=== PATIENT | female | born 1950 | race Caucasian/White ===

== ENCOUNTER 2016-11-28 22:57 | Emergency (ER) | payer OTHER ==
[2016-11-28] MEDS ORDERED: SODIUM CHLORIDE 0.9% 1,000 ML IV ONE (23:29)
[2016-11-28] MEDS ORDERED: SODIUM CHLORIDE 0.9% 1,000 ML IV SCH (23:30)
[2016-11-29 00:12] VITALS: RESP 18
--- NOTE | 2016-11-29 00:16 | ED ---
Female Urogenital HPI - General Chief complaint: Urogenital Stated complaint: UTI Time Seen by Provider: 11/28/16 23:07 Source: patient, RN notes reviewed, old records reviewed Mode of arrival: ambulatory Limitations: no limitations - History of Present Illness Initial comments: This is a 56-year-old female presenting to the emergency department with chief complaint of acute urinary retention. Patient reports that she was able to urinate fine earlier today, but did notice increased frequency. Patient states that approximately half hour ago she tried to urinate but was unable to. Patient reports that she feels like her ladder is very distended and that she is unable to go. She denies any numbness or tingling down her legs. She states that she takes Xanax for anxiety, but she denies any other medications. Patient reports on Friday she did strain her back. She reports that she's had some intermittent pain with certain movements. Patient denies any difficulty with bowel movements. Patient reports that the pain seems sharp and sudden only occurred for the past half hour. Patient denies any recent fever, chills, shortness of breath, chest pain, back pain, nausea vomiting, numbness or tingling, constipation or diarrhea, headaches or visual changes, or any other current symptoms - Related Data Home Medications Medication Instructions Recorded Confirmed ALPRAZolam [Xanax] 0.5 mg PO HS PRN 11/28/16 11/28/16 Ibuprofen [Motrin] 400 - 800 mg PO BID PRN 11/28/16 11/28/16 Previous Rx's Medication Instructions Recorded Levofloxacin [Levaquin] 750 mg PO DAILY #5 tab 11/29/16 Phenazopyridine [Pyridium] 100 mg PO TID #9 tablet 11/29/16 Allergies Allergy/AdvReac Type Severity Reaction Status Date / Time No Known Allergies Allergy Verified 11/28/16 23:17 Review of Systems ROS Statement: Those systems with pertinent positive or pertinent negative responses have been documented in the HPI. ROS Other: All systems not noted in ROS Statement are negative. Past Medical History Past Medical History: No Reported History History of Any Multi-Drug Resistant Organisms: None Reported Past Surgical History: Hysterectomy Additional Past Surgical History / Comment(s): bladder sling. left wrist. Past Psychological History: No Psychological Hx Reported Smoking Status: Never smoker Past Alcohol Use History: Occasional Past Drug Use History: None Reported General Exam - General Exam Comments Initial Comments: This is a 66-year-old female. appears to be in acute pain. Limitations: no limitations General appearance: alert, in no apparent distress Head exam: Present: atraumatic, normocephalic, normal inspection Eye exam: Present: normal appearance, PERRL, EOMI. Absent: scleral icterus, conjunctival injection, periorbital swelling ENT exam: Present: normal exam, mucous membranes moist Neck exam: Present: normal inspection. Absent: tenderness, meningismus, lymphadenopathy Respiratory exam: Present: normal lung sounds bilaterally. Absent: respiratory distress, wheezes, rales, rhonchi, stridor Cardiovascular Exam: Present: regular rate, normal rhythm, normal heart sounds. Absent: systolic murmur, diastolic murmur, rubs, gallop, clicks GI/Abdominal exam: Present: soft, tenderness (Severe suprapubic tenderness.), normal bowel sounds. Absent: distended, guarding, rebound, rigid Rectal exam: Present: normal inspection, normal rectal tone Extremities exam: Present: normal inspection, full ROM, normal capillary refill. Absent: tenderness, pedal edema, joint swelling, calf tenderness Back exam: Present: normal inspection, full ROM Neurological exam: Present: alert, oriented X3, CN II-XII intact Psychiatric exam: Present: normal affect, normal mood Skin exam: Present: warm, dry, intact, normal color. Absent: rash Course Vital Signs 11/28/16 11/29/16 11/29/16 23:00 00:11 01:36 Temperature 97.4 F L 97.6 F Pulse Rate 117 H 72 76 Respiratory 28 H 18 18 Rate Blood Pressure 136/72 171/88 175/88 O2 Sat by Pulse 99 97 97 Oximetry - Reevaluation(s) Reevaluation #1: 11/29/16 00:16 Patient appears to have a severe acute urinary retention. Bladder scan was performed and showed 720 mL of fluid. Patient attempted to go to the bathroom however was unable to. Patient did receive a straight cath at that time. Patient reports that she is 100% improvement of her pain. Patient states her pain is a 0 out of 10 at this time. Discussed with the patient that I like to do IV blood work and give her IV fluids, and reevaluate and see if she is able to urinate again. Medical Decision Making - Medical Decision Making This is a 56-year-old female presenting to the emergency department with chief complaint of acute urinary retention. Patient reports that she was able to urinate fine earlier today, but did notice increased frequency. Patient states that approximately half hour ago she tried to urinate but was unable to. Patient reports that she feels like her ladder is very distended and that she is unable to go. She denies any numbness or tingling down her legs. She states that she takes Xanax for anxiety, but she denies any other medications. Patient reports on Friday she did strain her back. Initially try to go to the bathroom but was unable to. She was bladder scanned and noted to have some burn 20 mL of fluid in her bladder. Patient will straight cath. Patient reports significant improvement of her pain after the catheterization. Urine does show significant signs of infection including many red blood cells, white blood cells, nitrites and leukocyte esterase. Patient was given IV fluids and blood work was obtained. Blood work was negative for any acute process. Urine culture will be obtained. Patient was able to urinate after receiving the straight cath and did go to urinate 3 times on the emergency department. Patient acute urinary retention was likely due to urethral inflammation. Patient states that she wants to go home. Patient did receive IV Rocephin and by mouth Levaquin before being discharged. Patient will be discharged with Pyridium and 5 days of Levaquin. Discussed close follow -up with primary care provider. Patient advised on return parameters with acute urinary retention occurs. Rectal exam was performed and shows normal sphincter tone, concern for neurogenic bladder. - Lab Data Result diagrams: 11/29/16 00:05 11/29/16 00:05 Lab Results 11/28/16 11/29/16 11/29/16 Range/Units 23:40 00:05 00:05 WBC 7.5 (3.8-10.6) k/uL RBC 4.50 (3.80-5.40) m/uL Hgb 13.4 (11.4-16.0) gm/dL Hct 41.4 (34.0-46.0) % MCV 91.9 (80.0-100.0) fL MCH 29.9 (25.0-35.0) pg MCHC 32.5 (31.0-37.0) g/dL RDW 13.3 (11.5-15.5) % Plt Count 247 (150-450) k/uL Neutrophils % 60 % Lymphocytes % 29 % Monocytes % 6 % Eosinophils % 3 % Basophils % 1 % Neutrophils # 4.5 (1.3-7.7) k/uL Lymphocytes # 2.1 (1.0-4.8) k/uL Monocytes # 0.5 (0-1.0) k/uL Eosinophils # 0.2 (0-0.7) k/uL Basophils # 0.1 (0-0.2) k/uL Sodium 142 (137-145) mmol/L Potassium 4.0 (3.5-5.1) mmol/L Chloride 108 H (98-107) mmol/L Carbon Dioxide 24 (22-30) mmol/L Anion Gap 10 mmol/L BUN 18 H (7-17) mg/dL Creatinine 0.80 (0.52-1.04) mg/dL Est GFR (MDRD) Af Amer >60 (>60 ml/min/1.73 sqM) Est GFR (MDRD) Non-Af >60 (>60 ml/min/1.73 sqM) Glucose 102 H (74-99) mg/dL Plasma Lactic Acid Rj (0.7-2.0) mmol/L Calcium 9.3 (8.4-10.2) mg/dL Total Bilirubin 0.3 (0.2-1.3) mg/dL AST 24 (14-36) U/L ALT 36 (9-52) U/L Alkaline Phosphatase 94 (38-126) U/L Total Protein 7.1 (6.3-8.2) g/dL Albumin 4.0 (3.5-5.0) g/dL Urine Color Yellow Urine Appearance Cloudy H (Clear) Urine pH 6.5 (5.0-8.0) Ur Specific [place] 1.009 (1.001-1.035) Urine Protein 1+ H (Negative) Urine Glucose (UA) Negative (Negative) Urine Ketones Negative (Negative) Urine Blood Large H (Negative) Urine Nitrite Positive H (Negative) Urine Bilirubin Negative (Negative) Urine Urobilinogen <2.0 (<2.0) mg/dL Ur Leukocyte Esterase Large H (Negative) Urine RBC >182 H (0-5) /hpf Urine WBC >182 H (0-5) /hpf Urine WBC Clumps Moderate H (None) /hpf Urine Bacteria Moderate H (None) /hpf 11/29/16 Range/Units 00:05 WBC (3.8-10.6) k/uL RBC (3.80-5.40) m/uL Hgb (11.4-16.0) gm/dL Hct (34.0-46.0) % MCV (80.0-100.0) fL MCH (25.0-35.0) pg MCHC (31.0-37.0) g/dL RDW (11.5-15.5) % Plt Count (150-450) k/uL Neutrophils % % Lymphocytes % % Monocytes % % Eosinophils % % Basophils % % Neutrophils # (1.3-7.7) k/uL Lymphocytes # (1.0-4.8) k/uL Monocytes # (0-1.0) k/uL Eosinophils # (0-0.7) k/uL Basophils # (0-0.2) k/uL Sodium (137-145) mmol/L Potassium (3.5-5.1) mmol/L Chloride (98-107) mmol/L Carbon Dioxide (22-30) mmol/L Anion Gap mmol/L BUN (7-17) mg/dL Creatinine (0.52-1.04) mg/dL Est GFR (MDRD) Af Amer (>60 ml/min/1.73 sqM) Est GFR (MDRD) Non-Af (>60 ml/min/1.73 sqM) Glucose (74-99) mg/dL Plasma Lactic Acid Rj 0.9 (0.7-2.0) mmol/L Calcium (8.4-10.2) mg/dL Total Bilirubin (0.2-1.3) mg/dL AST (14-36) U/L ALT (9-52) U/L Alkaline Phosphatase (38-126) U/L Total Protein (6.3-8.2) g/dL Albumin (3.5-5.0) g/dL Urine Color Urine Appearance (Clear) Urine pH (5.0-8.0) Ur Specific [place] (1.001-1.035) Urine Protein (Negative) Urine Glucose (UA) (Negative) Urine Ketones (Negative) Urine Blood (Negative) Urine Nitrite (Negative) Urine Bilirubin (Negative) Urine Urobilinogen (<2.0) mg/dL Ur Leukocyte Esterase (Negative) Urine RBC (0-5) /hpf Urine WBC (0-5) /hpf Urine WBC Clumps (None) /hpf Urine Bacteria (None) /hpf Disposition Clinical Impression: Urinary tract infection, Acute urinary retention Disposition: HOME SELF-CARE Condition: Good Instructions: Urinary Tract Infection in Women (ED) Additional Instructions: Follow up with her primary care provider within the next 1-2 days. Return to emergency department if any alarming signs or symptoms occur. Prescriptions: Levofloxacin [Levaquin] 750 mg PO DAILY #5 tab Phenazopyridine [Pyridium] 100 mg PO TID #9 tablet Referrals: Nicolas Ceja MD [Primary Care Provider] - 1-2 days Time of Disposition: 01:20
[2016-11-29 00:19] LABS: Appearance,Urine Cloudy (Clear); Bacteria,Urine Moderate /hpf; Bilirubin,Urine Negative (Negative); Glucose,Urine (UA) Negative (Negative); Ketones,Urine Negative (Negative); Leukocyte Esterase,Urine Large (Negative); Nitrite,Urine Positive (Negative); PH, Urine 6.5 (5.0-8.0); Particle Count 25640; Protein,Urine 1+ (Negative); RBC,Urine >182 /hpf (0-5); Specific Gravity,Urine 1.009 (1.001-1.035); UA Billing (MACRO vs. MICRO) MICRO; Urobilinogen,Urine <2.0 mg/dL (<2.0); WBC,Urine >182 /hpf (0-5)
[2016-11-29 00:21] LABS: Basophils # (A) 0.1 k/uL (0-0.2); Basophils % (A) 1 %; CHCM 32.8; Eosinophils # (A) 0.2 k/uL (0-0.7); Eosinophils % (A) 3 %; HCT 41.4 % (34.0-46.0); HDW 2.29; HGB 13.4 gm/dL (11.4-16.0); Luc # (Auto) 0.13; Luc % (Auto) 2; Lymphocytes # (A) 2.1 k/uL (1.0-4.8); Lymphocytes % (A) 29 %; MCH 29.9 pg (25.0-35.0); MCHC 32.5 g/dL (31.0-37.0); MCV 91.9 fL (80.0-100.0); Mean Platelet Volume 7.5; Monocytes # (A) 0.5 k/uL (0-1.0); Monocytes % (A) 6 %; Neutrophils # (A) 4.5 k/uL (1.3-7.7); Neutrophils % (A) 60 %; RDW 13.3 % (11.5-15.5); WBC 7.5 k/uL (3.8-10.6)
[2016-11-29 00:33] LABS: ALT 36 U/L (9-52); AST 24 U/L (14-36); Alkaline Phosphatase 94 U/L (38-126); Anion Gap 10 mmol/L; Blood Urea Nitrogen 18 mg/dL (7-17); Calcium 9.3 mg/dL (8.4-10.2); Carbon Dioxide 24 mmol/L (22-30); Chloride 108 mmol/L (98-107); Glucose 102 mg/dL (74-99); Non-African American GFR(MDRD) >60 (>60 ml/min/1.73 sqM); Sodium 142 mmol/L (137-145); Total Bilirubin 0.3 mg/dL (0.2-1.3); Total Protein 7.1 g/dL (6.3-8.2)
--- NOTE | 2016-11-29 00:36 | XR ---
EXAM: XR Pelvis, 1 or 2 Views CLINICAL HISTORY: Pain. TECHNIQUE: Frontal view of the pelvis. COMPARISON: No relevant prior studies available. FINDINGS: Bones/joints: No acute fracture. No dislocation. There are mild degenerative changes at the hip joints. Soft tissues: Few pelvic calcifications, most likely vascular. IMPRESSION: No acute findings.
--- NOTE | 2016-11-29 00:41 | XR ---
EXAM: XR Lumbar Spine, 2 or 3 Views CLINICAL HISTORY: Pain TECHNIQUE: Frontal and lateral views of the lumbar spine. COMPARISON: No relevant prior studies available. FINDINGS: Vertebrae: Decreased osseous mineralization. Mild curvature of the lumbar spine. No radiographic evidence of fracture or significant malalignment. The vertebral body heights are maintained. There is lower lumbar spine facet arthropathy. Disc spaces: Mild multilevel disc space narrowing. Soft tissues: Moderate colonic stool and gas. IMPRESSION: No radiographic evidence of fracture or significant malalignment.
[2016-11-29] MEDS ORDERED: LEVOFLOXACIN 750MG-D5W PMX 750 MG in DEXTROSE/WATER 1 150ML.BAG IVPB STA (00:46)
[2016-11-29] MEDS ORDERED: LEVOFLOXACIN 750 MG TAB PO STA (00:47)
[2016-11-29 01:37] VITALS: BP 175/88; PULSE 76; TEMP 97.6
== END 2016-11-29 01:38 | disposition home or self-care (01) ==
LOC: EC 22:57
DX: N39.0 Urinary tract infection, site not specified (principal); R33.9 Retention of urine, unspecified; M54.9 Dorsalgia, unspecified
CPT/HCPCS: 99284; 96365; 96361; 51701; 51798; 36415; 80053; 83605; 85025; 81001; 87040; 87086; 72100; 72170; J0696; 87077; 87186

== ENCOUNTER 2016-11-30 02:05 | Emergency (ER) | payer MEDICARE, OTHER ==
[2016-11-30] MEDS: SODIUM CHLORIDE 0.9% 500 ML IV SCH (03:22)
--- NOTE | 2016-11-30 03:33 | ED ---
Female Urogenital HPI - General Chief complaint: Urogenital Stated complaint: Female Time Seen by Provider: 11/30/16 02:39 Source: patient, RN notes reviewed, old records reviewed Mode of arrival: ambulatory Limitations: no limitations - History of Present Illness Initial comments: Is a 66-year-old female presenting to emergency Department chief complaint of unable to urinate since 5 PM. Patient was seen in the emergency department 2 days ago and was diagnosed the urinary tract infection for similar symptoms. At that time she received a straight cath and was able to urinate afterwards. Patient reports that she was able to urinate all day today except after 5:00. Patient states that she's been taking her antibiotics. Patient denies any vomiting. She is reports suprapubic pressure. She denies any difficulty with bowel movements. - Related Data Home Medications Medication Instructions Recorded Confirmed ALPRAZolam [Xanax] 0.5 mg PO HS PRN 11/28/16 11/28/16 Ibuprofen [Motrin] 400 - 800 mg PO BID PRN 11/28/16 11/28/16 Previous Rx's Medication Instructions Recorded Levofloxacin [Levaquin] 750 mg PO DAILY #5 tab 11/29/16 Phenazopyridine [Pyridium] 100 mg PO TID #9 tablet 11/29/16 Allergies Allergy/AdvReac Type Severity Reaction Status Date / Time No Known Allergies Allergy Verified 11/30/16 02:10 Review of Systems ROS Statement: Those systems with pertinent positive or pertinent negative responses have been documented in the HPI. ROS Other: All systems not noted in ROS Statement are negative. Past Medical History Past Medical History: No Reported History History of Any Multi-Drug Resistant Organisms: None Reported Past Surgical History: Hysterectomy Additional Past Surgical History / Comment(s): bladder sling. left wrist. Past Psychological History: No Psychological Hx Reported Smoking Status: Never smoker Past Alcohol Use History: Occasional Past Drug Use History: None Reported General Exam Limitations: no limitations General appearance: alert, in no apparent distress Head exam: Present: atraumatic, normocephalic, normal inspection Eye exam: Present: normal appearance, PERRL, EOMI. Absent: scleral icterus, conjunctival injection, periorbital swelling ENT exam: Present: normal exam, mucous membranes moist Neck exam: Present: normal inspection. Absent: tenderness, meningismus, lymphadenopathy Respiratory exam: Present: normal lung sounds bilaterally. Absent: respiratory distress, wheezes, rales, rhonchi, stridor Cardiovascular Exam: Present: regular rate, normal rhythm, normal heart sounds. Absent: systolic murmur, diastolic murmur, rubs, gallop, clicks GI/Abdominal exam: Present: soft, normal bowel sounds. Absent: distended, tenderness, guarding, rebound, rigid Rectal exam: Present: normal inspection, normal rectal tone Extremities exam: Present: normal inspection, full ROM, normal capillary refill. Absent: tenderness, pedal edema, joint swelling, calf tenderness Back exam: Present: normal inspection Neurological exam: Present: alert, oriented X3, CN II-XII intact Course Vital Signs 11/30/16 11/30/16 11/30/16 02:07 02:23 03:57 Temperature 99.8 F H 98.7 F Pulse Rate 108 H Respiratory 20 Rate Blood Pressure 222/118 172/110 O2 Sat by Pulse 96 Oximetry 11/30/16 04:44 Temperature 98.0 F Pulse Rate 84 Respiratory 18 Rate Blood Pressure 176/86 O2 Sat by Pulse 98 Oximetry Medical Decision Making - Medical Decision Making Is a 66-year-old female presenting to emergency Department chief complaint of unable to urinate since 5 PM. Patient was seen in the emergency department 2 days ago and was diagnosed the urinary tract infection for similar symptoms. At that time she received a straight cath and was able to urinate afterwards. Patient reports that she was able to urinate all day today except after 5:00. Patient states that she's been taking her antibiotics. Patient denies any vomiting. She is reports suprapubic pressure. She denies any difficulty with bowel movements. PAtient received whitehead catheter as concern for repeat acute urinary retention. Patient labwork was reviewed, negative for any significant process besides severe UTI. Patient did receive rocephin and levaquin. Patient case discussed with Dr. Vilchis, he will contact urologist tomorrow morning for a follow up appointment on Friday. REturn parameters discussed. - Lab Data Result diagrams: 11/30/16 03:26 11/30/16 03:26 Lab Results 11/30/16 11/30/16 11/30/16 Range/Units 03:26 03:26 03:26 WBC 8.8 (3.8-10.6) k/uL RBC 4.58 (3.80-5.40) m/uL Hgb 13.7 (11.4-16.0) gm/dL Hct 41.3 (34.0-46.0) % MCV 90.0 (80.0-100.0) fL MCH 29.8 (25.0-35.0) pg MCHC 33.1 (31.0-37.0) g/dL RDW 13.1 (11.5-15.5) % Plt Count 215 (150-450) k/uL Neutrophils % 85 % Lymphocytes % 9 % Monocytes % 5 % Eosinophils % 0 % Basophils % 0 % Neutrophils # 7.5 (1.3-7.7) k/uL Lymphocytes # 0.8 L (1.0-4.8) k/uL Monocytes # 0.4 (0-1.0) k/uL Eosinophils # 0.0 (0-0.7) k/uL Basophils # 0.0 (0-0.2) k/uL PT (9.0-12.0) sec INR (<1.1) APTT (22.0-30.0) sec Sodium 137 (137-145) mmol/L Potassium 3.7 (3.5-5.1) mmol/L Chloride 105 (98-107) mmol/L Carbon Dioxide 20 L (22-30) mmol/L Anion Gap 12 mmol/L BUN 17 (7-17) mg/dL Creatinine 0.80 (0.52-1.04) mg/dL Est GFR (MDRD) Af Amer >60 (>60 ml/min/1.73 sqM) Est GFR (MDRD) Non-Af >60 (>60 ml/min/1.73 sqM) Glucose 123 H (74-99) mg/dL Plasma Lactic Acid Rj 0.8 (0.7-2.0) mmol/L Calcium 9.5 (8.4-10.2) mg/dL Total Bilirubin 0.5 (0.2-1.3) mg/dL AST 26 (14-36) U/L ALT 40 (9-52) U/L Alkaline Phosphatase 108 (38-126) U/L Total Protein 7.1 (6.3-8.2) g/dL Albumin 4.1 (3.5-5.0) g/dL Urine Color Urine Appearance (Clear) Urine pH (5.0-8.0) Ur Specific [place] (1.001-1.035) Urine Protein (Negative) Urine Glucose (UA) (Negative) Urine Ketones (Negative) Urine Blood (Negative) Urine Nitrite (Negative) Urine Bilirubin (Negative) Urine Urobilinogen (<2.0) mg/dL Ur Leukocyte Esterase (Negative) Urine RBC (0-5) /hpf Urine WBC (0-5) /hpf Urine WBC Clumps (None) /hpf Ur Squamous Epith Cells (0-4) /hpf Urine Bacteria (None) /hpf Urine Yeast (Budding) (None) /hpf 11/30/16 11/30/16 Range/Units 03:26 03:26 WBC (3.8-10.6) k/uL RBC (3.80-5.40) m/uL Hgb (11.4-16.0) gm/dL Hct (34.0-46.0) % MCV (80.0-100.0) fL MCH (25.0-35.0) pg MCHC (31.0-37.0) g/dL RDW (11.5-15.5) % Plt Count (150-450) k/uL Neutrophils % % Lymphocytes % % Monocytes % % Eosinophils % % Basophils % % Neutrophils # (1.3-7.7) k/uL Lymphocytes # (1.0-4.8) k/uL Monocytes # (0-1.0) k/uL Eosinophils # (0-0.7) k/uL Basophils # (0-0.2) k/uL PT 10.8 (9.0-12.0) sec INR 1.1 (<1.1) APTT 22.9 (22.0-30.0) sec Sodium (137-145) mmol/L Potassium (3.5-5.1) mmol/L Chloride (98-107) mmol/L Carbon Dioxide (22-30) mmol/L Anion Gap mmol/L BUN (7-17) mg/dL Creatinine (0.52-1.04) mg/dL Est GFR (MDRD) Af Amer (>60 ml/min/1.73 sqM) Est GFR (MDRD) Non-Af (>60 ml/min/1.73 sqM) Glucose (74-99) mg/dL Plasma Lactic Acid Rj (0.7-2.0) mmol/L Calcium (8.4-10.2) mg/dL Total Bilirubin (0.2-1.3) mg/dL AST (14-36) U/L ALT (9-52) U/L Alkaline Phosphatase (38-126) U/L Total Protein (6.3-8.2) g/dL Albumin (3.5-5.0) g/dL Urine Color Dark Brown Urine Appearance Cloudy H (Clear) Urine pH 6.0 (5.0-8.0) Ur Specific [place] 1.010 (1.001-1.035) Urine Protein 1+ H (Negative) Urine Glucose (UA) Negative (Negative) Urine Ketones Negative (Negative) Urine Blood Moderate H (Negative) Urine Nitrite Positive H (Negative) Urine Bilirubin Negative (Negative) Urine Urobilinogen <2.0 (<2.0) mg/dL Ur Leukocyte Esterase Large H (Negative) Urine RBC >182 H (0-5) /hpf Urine WBC >182 H (0-5) /hpf Urine WBC Clumps Many H (None) /hpf Ur Squamous Epith Cells <1 (0-4) /hpf Urine Bacteria Many H (None) /hpf Urine Yeast (Budding) Moderate H (None) /hpf 11/30/16 03:53 She shows normal sinus rhythm. Ventricular rate of 85 bpm. OK 154 ms. QRS ratio 86 no seconds. QT QTC 372/442 ms. No evidence of ST elevation or T-wave inversions. No evidence of atrial or ventricular arrhythmias. Disposition Clinical Impression: Acute urinary retention, UTI (urinary tract infection) Disposition: HOME SELF-CARE Condition: Good Instructions: Urinary Tract Infection in Women (ED), Whitehead Catheter Placement and Care (ED), Chronic Urinary Retention in Women (ED) Additional Instructions: Patient advised to follow-up with urologist on Friday. Return to the emergency department if any alarming signs or symptoms occur. Referrals: Nicolas Ceja MD [Primary Care Provider] - 1-2 days Adonay Kimball MD [STAFF PHYSICIAN] - 1-2 days Time of Disposition: 04:24
[2016-11-30 03:43] LABS: Basophils % (A) 0 %; CH 29.7; CHCM 33.2; Eosinophils % (A) 0 %; HCT 41.3 % (34.0-46.0); HDW 2.28; HGB 13.7 gm/dL (11.4-16.0); Luc # (Auto) 0.09; Luc % (Auto) 1; Lymphocytes # (A) 0.8 k/uL (1.0-4.8); Lymphocytes % (A) 9 %; MCH 29.8 pg (25.0-35.0); MCHC 33.1 g/dL (31.0-37.0); Mean Platelet Volume 7.3; Monocytes # (A) 0.4 k/uL (0-1.0); Monocytes % (A) 5 %; Neutrophils # (A) 7.5 k/uL (1.3-7.7); Neutrophils % (A) 85 %; RBC 4.58 m/uL (3.80-5.40); RDW 13.1 % (11.5-15.5); WBC 8.8 k/uL (3.8-10.6); WBC (Perox) 8.65
[2016-11-30 03:49] LABS: INR 1.1 (<1.1); Partial Thromboplastin Time 22.9 sec (22.0-30.0); Prothrombin Time 10.8 sec (9.0-12.0)
[2016-11-30 03:50] LABS: ALT 40 U/L (9-52); AST 26 U/L (14-36); Alkaline Phosphatase 108 U/L (38-126); Anion Gap 12 mmol/L; Blood Urea Nitrogen 17 mg/dL (7-17); Calcium 9.5 mg/dL (8.4-10.2); Carbon Dioxide 20 mmol/L (22-30); Chloride 105 mmol/L (98-107); Glucose 123 mg/dL (74-99); Non-African American GFR(MDRD) >60 (>60 ml/min/1.73 sqM); Potassium 3.7 mmol/L (3.5-5.1); Sodium 137 mmol/L (137-145); Total Bilirubin 0.5 mg/dL (0.2-1.3); Total Protein 7.1 g/dL (6.3-8.2)
[2016-11-30 04:08] LABS: Appearance,Urine Cloudy (Clear); Bacteria,Urine Many /hpf; Bilirubin,Urine Negative (Negative); Glucose,Urine (UA) Negative (Negative); Ketones,Urine Negative (Negative); Leukocyte Esterase,Urine Large (Negative); Nitrite,Urine Positive (Negative); Particle Count 3044; Protein,Urine 1+ (Negative); RBC,Urine >182 /hpf (0-5); Squamous Epithelial Cell,Urine <1 /hpf (0-4); UA Billing (MACRO vs. MICRO) MICRO; Urobilinogen,Urine <2.0 mg/dL (<2.0); WBC,Urine >182 /hpf (0-5)
[2016-11-30 04:47] VITALS: BP 176/86; PULSE 84; RESP 18; TEMP 98
== END 2016-11-30 04:44 | disposition home or self-care (01) ==
LOC: EC 02:05
DX: N39.0 Urinary tract infection, site not specified (principal); R33.9 Retention of urine, unspecified; Z90.710 Acquired absence of both cervix and uterus
CPT/HCPCS: 36415; 51702; 51798; 80053; 81001; 83605; 85025; 85610; 85730; 87040; 87086; 93005; 99284

== ENCOUNTER 2018-04-07 12:43 | Emergency (ER) | payer MEDICARE ==
[2018-04-07 13:42] VITALS: BP 168/84; PULSE 99; RESP 18; TEMP 98
--- NOTE | 2018-04-07 14:41 | ED ---
General Adult HPI - General Chief complaint: Fall Stated complaint: fall, lt leg pain Time Seen by Provider: 04/07/18 14:09 Source: patient, RN notes reviewed, old records reviewed Mode of arrival: wheelchair Limitations: no limitations - History of Present Illness Initial comments: CC 67-year-old female patient presents to ED approximately 2.5 hours after mechanical fall on the left side. Patient experienced immediate sharp pain in the left posterior hip, patient denies trauma to head loss of consciousness or other associated injuries. Patient was initially weightbearing after fall walks in house and walked in ED. Patient experienced pain in left lateral femur and posterior left hip with ambulation. Patient denies any recent fever, chills, shortness of breath, chest pain, back pain, abdominal pain, nausea or vomiting, numbness or tingling, dysuria or hematuria, constipation or diarrhea, headaches or visual changes, or any other complaints. - Related Data Home Medications Medication Instructions Recorded Confirmed ALPRAZolam [Xanax] 0.5 mg PO HS PRN 11/28/16 11/28/16 Ibuprofen [Motrin] 400 - 800 mg PO BID PRN 11/28/16 11/28/16 Previous Rx's Medication Instructions Recorded Levofloxacin [Levaquin] 750 mg PO DAILY #5 tab 11/29/16 Phenazopyridine [Pyridium] 100 mg PO TID #9 tablet 11/29/16 Allergies Allergy/AdvReac Type Severity Reaction Status Date / Time No Known Allergies Allergy Verified 04/07/18 13:42 Review of Systems ROS Statement: Those systems with pertinent positive or pertinent negative responses have been documented in the HPI. ROS Other: All systems not noted in ROS Statement are negative. Past Medical History Past Medical History: No Reported History, Hypertension History of Any Multi-Drug Resistant Organisms: None Reported Past Surgical History: Hysterectomy Additional Past Surgical History / Comment(s): bladder sling. left wrist. Past Psychological History: No Psychological Hx Reported Smoking Status: Never smoker Past Alcohol Use History: Occasional Past Drug Use History: None Reported General Exam - General Exam Comments Initial Comments: General: Patient appears to be in no distress. Vital stable. HEENT: Pupils equal round reactive to light. Neck supple, no notable lymphadenopathy. External ears appear normal. Mucus membranes moist. Cardiac: Regular rate rhythm no murmur or gallop. Pulmonary: Lungs are clear bilaterally. No rales, rhonchi. Abdomen: Soft and nontender to palpation, no hepatosplenomegaly. Bowel sounds active in left lower quadrant MSK: Left leg tender to palpation in posterior proximal left leg. Lower extremities and upper extremities otherwise nontender to palpation. Left eusebio strength slightly decreased 2/2 pain, R psoas strength wnl. No ecchymoses noted. No visual deformities. Distal lower extremity pulses +2 bilaterally. Proximal and distal lower extremity sensation intact bilaterally. Pt able to ambulate without difficulty using cane. Course Vital Signs 04/07/18 13:38 Temperature 98.0 F Pulse Rate 99 Respiratory 18 Rate Blood Pressure 168/84 O2 Sat by Pulse 98 Oximetry Medical Decision Making - Medical Decision Making Films of left hip and femur reviewed and are negative for fracture. Patient is ambulatory with cane in room, patient's pain is well-controlled with 800 mg ibuprofen. Patient prefers to purchase [id number] ibuprofen to control pain at home. Patient advised to return if symptoms worsen or do not improve within 1 week. Disposition Clinical Impression: Contusion of hip, left Disposition: HOME SELF-CARE Condition: Good Instructions: Hip Pain (ED) Additional Instructions: Patient may take [id number] ibuprofen as directed by the administration guidelines on bottle. Continue to bear weight as tolerated. If symptoms do not improve or angela in one week follow-up at ED or with primary care physician. Is patient prescribed a controlled substance at d/c from ED?: No Referrals: Nicolas Ceja MD [Primary Care Provider] - 1-2 days Time of Disposition: 15:43
--- NOTE | 2018-04-07 14:56 | XR ---
EXAMINATION TYPE: XR femur LT DATE OF EXAM: 04/07/2018 CLINICAL HISTORY: Left femur pain after fall. TECHNIQUE: Two views of the left femur are obtained. COMPARISON: None FINDINGS: There is no acute fracture or dislocation seen in the left femur. The left hip and knee j oints display mild medial compartment arthropathy of the knee in minimal degenerative change of the f emoral acetabular joint. Fabella is incidentally noted of the knee. The overlying soft tissue appears unremarkable. IMPRESSION: There is no acute fracture or dislocation in the left femur.
[2018-04-07] MEDS ORDERED: IBUPROFEN 800 MG TAB PO STA (14:57)
--- NOTE | 2018-04-07 15:03 | XR ---
EXAMINATION TYPE: XR Hip LT and AP Pelvis DATE OF EXAM: 04/07/2018 COMPARISON: 11/29/2016 HISTORY: Trauma and pain TECHNIQUE: A single AP view of the pelvis is obtained. Two views of the left hip are obtained. FINDINGS: There is no acute fracture/dislocation evident in the pelvis. The hip and sacroiliac join ts appear symmetric and unremarkable. The overlying soft tissue appears unremarkable. Two views of left hip show no acute fracture or dislocation. No focal lytic or sclerotic lesion seen in the proximal left femur. The overlying soft tissue is unremarkable. IMPRESSION: There is no acute fracture or dislocation in the pelvis or left hip.
== END 2018-04-07 15:55 | disposition home or self-care (01) ==
LOC: EC 12:43
DX: S70.02XA Contusion of left hip, initial encounter (principal); W01.0XXA Fall on same level from slipping, tripping and stumbling without subsequent striking against object, initial encounter; Y92.094 Garage of other non-institutional residence as the place of occurrence of the external cause
CPT/HCPCS: 73502; 99284

== ENCOUNTER → 2018-06-04 | Outpatient (CLI) | payer MEDICARE ==
--- NOTE | 2018-06-04 10:15 | US ---
EXAMINATION TYPE: US venous doppler duplex LE LT DATE OF EXAM: 06/04/2018 10:02 AM COMPARISON: NONE CLINICAL HISTORY: Left Lower Ext Pain and Swelling S72.145D. SIDE PERFORMED: Left TECHNIQUE: The lower extremity deep venous system is examined utilizing real time linear array sonog mike with graded compression, doppler sonography and color-flow sonography. VESSELS IMAGED: External Iliac Vein (EIV) Common Femoral Vein Deep Femoral Vein Greater Saphenous Vein * Femoral Vein Popliteal Vein Small Saphenous Vein * Proximal Calf Veins (* superficial vessels) Left Leg: Negative for DVT GSV and PTV also scanned per order. Preliminary results given to Judi at Dr. Delgadillo's office. IMPRESSION: No evidence for DVT or superficial vein thrombosis
== END | disposition home or self-care (01) ==
LOC: RADUSWWP 09:28
PROVIDERS: ATTEND Orthopaedic Surgery
DX: S72.145D Nondisplaced intertrochanteric fracture of left femur, subsequent encounter for closed fracture with routine healing (principal); I80.9 Phlebitis and thrombophlebitis of unspecified site

== ENCOUNTER → 2018-07-28 | Outpatient (CLI) | payer MEDICARE ==
--- NOTE | 2018-07-28 11:56 | US ---
EXAMINATION TYPE: US venous doppler duplex LE LT DATE OF EXAM: 07/28/2018 10:04 AM COMPARISON: Prior left lower extremity venous ultrasound June 04, 2018 CLINICAL HISTORY: S72.145D Intertrochanteric fracture. Pain. SIDE PERFORMED: Left TECHNIQUE: The lower extremity deep venous system is examined utilizing real time linear array sonog mike with graded compression, doppler sonography and color-flow sonography. VESSELS IMAGED: External Iliac Vein (EIV) Common Femoral Vein Deep Femoral Vein Greater Saphenous Vein * Femoral Vein Popliteal Vein Small Saphenous Vein * Proximal Calf Veins (* superficial vessels) Left Leg: Negative for DVT GSV and PTV's also scanned per order. Negative. Grayscale, color doppler, spectral doppler imaging performed of the deep veins of the left lower extr emity. There is normal flow, compressibility, vascular waveforms. Exam includes posterior tibial vei ns below the knee and greater saphenous vein towards left groin. IMPRESSION: No evidence of acute deep or superficial venous thrombosis in the left lower extremity .
== END | disposition home or self-care (01) ==
LOC: RADUSWWP 09:11
PROVIDERS: ATTEND Orthopaedic Surgery
DX: S72.145D Nondisplaced intertrochanteric fracture of left femur, subsequent encounter for closed fracture with routine healing (principal); I80.9 Phlebitis and thrombophlebitis of unspecified site

== ENCOUNTER 2022-03-04 19:58 | Emergency (ER) | payer MEDICARE ==
[2022-03-04 20:14] VITALS: BP 163/105; PULSE 105; RESP 20; TEMP 98.4
== END 2022-03-04 21:46 | disposition left against medical advice (07) ==
LOC: EC 19:58
DX: R05.9 Cough, unspecified (principal); R06.02 Shortness of breath; Z53.21 Procedure and treatment not carried out due to patient leaving prior to being seen by health care provider
CPT/HCPCS: 87635; 99499

== ENCOUNTER → 2023-06-17 | Outpatient (CLI) | payer MEDICARE ==
--- NOTE | 2023-06-17 10:15 | US ---
EXAMINATION TYPE: US kidneys/renal and bladder DATE OF EXAM: 06/17/2023 COMPARISON: US 04/24/2015 CLINICAL INDICATION: Female, 73 years old with history of N18.30 CHRONIC KIDNEY DISEASE, STAGE 3 UNSP ECIFIED; Patient denies any signs or symptoms EXAM MEASUREMENTS: Right Kidney: 10.1 x 4.4 x 4.6 cm Left Kidney: 10.1 x 4.5 x 5.1 cm Post Void Residual Volume: NA mL Right Kidney: ? Multiple calcifications throughout Left Kidney: wnl Bladder: Thickened wall Bilateral Jets seen: Yes Normal Post Void Residual: NA There is no evidence for hydronephrosis at this point in time. No nephrolithiasis is seen. No dipti s are identified. The urinary bladder is anechoic. Bilateral ureteral jets are seen. IMPRESSION: 1. Scattered punctate nonobstructing renal stones right kidney. 2. Some diffuse urinary bladder wall thickening may be present
== END | disposition home or self-care (01) ==
LOC: RADUSWWP 09:31
PROVIDERS: ATTEND Internal Medicine
DX: N18.30 Chronic kidney disease, stage 3 unspecified (principal); N20.0 Calculus of kidney; N32.89 Other specified disorders of bladder
CPT/HCPCS: 76770